=== PATIENT | female | born 1995 | race Caucasian/White ===

== ENCOUNTER 2017-12-18 17:40 | Emergency (ER) | payer OTHER ==
[2017-12-18 17:57] VITALS: BP 120/69
--- NOTE | 2017-12-18 18:09 | UC ---
Abdominal Pain Female HPI - HPI Summary HPI Summary: Patient is complaining of pain across her upper abdomen for the past month she states that it radiates under her ribs and sometimes into her back. She states that there is nothing that makes it feel any better. When asked what makes it worse, the patient reports that the medications given to her by the emergency room. She states that she was last seen in the ER for this last evening and was discharged to home. Pt states she has been seen in the ER for this, she states about 20x's within the past month. She states they've treated her with antibiotics, Tylenol and even Flexeril all with no relief. She denies any change in her discomfort with meals. She admits to occasional vomiting and diarrhea over the past month but none now. She denies any history of inflammatory bowel disease and reflux but offers that she did have her gallbladder out recently. That surgery was done by [facility] in [place]. she has no fever, dysuria, cp or sob. Pt has not made any f/u appt's with her pcp. - History of Current Complaint Chief Complaint: UCAbdominalPain Stated Complaint: ABDOM. PAIN Time Seen by Provider: 12/18/17 17:55 Pain Intensity: 10 Allergies/Adverse Reactions: Allergies Allergy/AdvReac Type Severity Reaction Status Date / Time No Known Allergies Allergy Verified 12/18/17 17:58 PMH/Surg Hx/FS Hx/Imm Hx Respiratory History: Asthma Psychological History: Depression - Surgical History Surgical History: Yes Surgery Procedure, Year, and Place: Gallbladder age 14 - Family History Known Family History: Positive: Other - copd/asthma - Social History Occupation: Employed Full-time Lives: With Family Alcohol Use: None Substance Use Type: None Smoking Status (MU): Never Smoked Tobacco - Immunization History Vaccination Up to Date: Yes Review of Systems Constitutional: Negative Skin: Negative Eyes: Negative ENT: Negative Respiratory: Negative Cardiovascular: Negative Gastrointestinal: Abdominal Pain Genitourinary: Negative Motor: Negative Neurovascular: Negative Musculoskeletal: Negative Neurological: Negative Psychological: Negative Is Patient Immunocompromised?: No All Other Systems Reviewed And Are Negative: Yes Physical Exam Triage Information Reviewed: Yes Appearance: Well-Appearing Vital Signs: Initial Vital Signs Temp 98.4 F 12/18/17 17:52 Pulse 76 12/18/17 17:52 Resp 16 12/18/17 17:52 BP 120/69 12/18/17 17:52 Pulse Ox 100 12/18/17 17:52 Vital Signs Reviewed: Yes Eyes: Positive: Conjunctiva Clear ENT: Positive: Normal ENT inspection Neck: Positive: Supple, Nontender, No Lymphadenopathy Respiratory: Positive: Chest non-tender, Lungs clear, Normal breath sounds Cardiovascular: Positive: RRR, No Murmur Abdomen Description: Positive: Other: - Postop scar from gallbladder surgery appreciated. Positive bowel sounds, soft, tender over the epigastrium but no mass, no hepatosplenomegaly or CVA tenderness. No guarding and no rebound. No CVA tenderness. Musculoskeletal: Positive: ROM Intact Neurological: Positive: Alert Psychological: Positive: Age Appropriate Behavior Skin Exam: Normal Diagnostics - Laboratory Diagnostic Studies Completed/Ordered: u/a= 2+ blood and trace protein. HCG=neg. Abd Pain Female Course/Dx - Course Course Of Treatment: Patient is nontoxic and has no acute abdomen. HCG is negative. UA showed trace protein and 2+ microscopic blood. We will trial of proton pump inhibitor and need for close follow-up with primary care stressed at the time of this visit. Patient also advised that if she has any worsening she is to go to the ER. She is also advised to follow bland diet. - Differential Dx/Diagnosis Provider Diagnoses: Epigastric pain Discharge - Sign-Out/Discharge Documenting (check all that apply): Patient Departure All imaging exams completed and their final reports reviewed: No Studies - Discharge Plan Condition: Stable Disposition: HOME Prescriptions: Omeprazole CAP* [Prilosec CAP* 20 MG] 20 mg PO 1700 #14 Patient Education Materials: Diet for Stomach Ulcers and Gastritis (ED), Acute Abdominal Pain (ED) Referrals: HOPE Arrieta [Medical Doctor] - As Soon As Possible Additional Instructions: GO TO THE ER FOR ANY CHANGES OR WORSENING - Billing Disposition and Condition Condition: STABLE Disposition: Home
== END 2017-12-18 18:57 | disposition home or self-care (01) ==
LOC: UCCORT 17:40
DX: R10.13 Epigastric pain (principal)
CPT/HCPCS: 81003; 84702; 99212; G0463

== ENCOUNTER 2018-02-23 20:23 | Emergency (ER) | payer OTHER ==
[2018-02-23 20:41] VITALS: BP 106/58
[2018-02-23] MEDS ORDERED: Amoxicillin PO (*) 500 MG CAP PO ONE (20:49)
--- NOTE | 2018-02-23 20:52 | UC ---
Ear Complaint HPI - HPI Summary HPI Summary: sharp right ear pain for 2 days, patient is - History of Current Complaint Chief Complaint: UCEar Stated Complaint: RT EAR PAIN Time Seen by Provider: 02/23/18 20:39 Hx Obtained From: Patient Hx Last Menstrual Period: EARLY DEC 2017 ?: Yes Onset/Duration: Sudden Onset Severity Initially: Severe Severity Currently: Severe Pain Intensity: 9 Associated Signs/Symptoms: Positive: URI Symptoms - Allergies/Home Medications Allergies/Adverse Reactions: Allergies Allergy/AdvReac Type Severity Reaction Status Date / Time No Known Allergies Allergy Verified 02/23/18 20:31 Home Medications: Home Medications Pnv No.95/Ferrous Fum/Folic AC [ and Iron] 1 tab PO DAILY 02/23/18 [ History Confirmed 02/23/18] PMH/Surg Hx/FS Hx/Imm Hx Previously Healthy: Yes - Surgical History Surgical History: Yes Surgery Procedure, Year, and Place: Gallbladder age 14. X 1 - Family History Known Family History: Positive: Other - copd/asthma - Social History Alcohol Use: None Substance Use Type: None Smoking Status (MU): Never Smoked Tobacco - Immunization History Vaccination Up to Date: Yes Review of Systems All Other Systems Reviewed And Are Negative: Yes Constitutional: Positive: Negative Skin: Positive: Negative Eyes: Positive: Negative ENT: Positive: Sore Throat, Ear Ache Respiratory: Positive: Negative Cardiovascular: Positive: Negative Gastrointestinal: Positive: Negative Genitourinary: Positive: Negative Motor: Positive: Negative Neurovascular: Positive: Negative Musculoskeletal: Positive: Negative Neurological: Positive: Negative Psychological: Positive: Negative Is Patient Immunocompromised?: No Physical Exam Triage Information Reviewed: Yes Appearance: Ill-Appearing, Pain Distress, Obese Vital Signs: Initial Vital Signs Temp 98.1 F 02/23/18 20:34 Pulse 80 02/23/18 20:34 Resp 18 02/23/18 20:34 BP 106/58 02/23/18 20:34 Pulse Ox 100 02/23/18 20:34 Vital Signs Reviewed: Yes Eye Exam: Normal ENT Exam: Normal ENT: Positive: TM bulging, TM dull, TM red - right ear Dental Exam: Normal Neck exam: Normal Respiratory: Positive: Chest non-tender, Lungs clear, Normal breath sounds Cardiovascular Exam: Normal Cardiovascular: Positive: RRR, No Murmur, Pulses Normal Abdominal Exam: Normal Musculoskeletal Exam: Normal Neurological Exam: Normal Psychological Exam: Normal Skin Exam: Normal Ear Complaint Course/Dx - Course Course Of Treatment: hx obtained, exam peformed ,meds reviewed, treated for otitis media - Differential Dx/Diagnosis Provider Diagnoses: right otitis media Discharge - Sign-Out/Discharge Documenting (check all that apply): Patient Departure All imaging exams completed and their final reports reviewed: No Studies - Discharge Plan Condition: Stable Disposition: HOME Prescriptions: Amoxicillin PO (*) [Amoxicillin 500 MG CAP*] 500 mg PO Q12H #19 cap Patient Education Materials: Ear Infection (ED) Referrals: Asael Hernandez MD [Primary Care Provider] - Additional Instructions: 1. take the medication as prescribed.2 2. Take tylenol for pain 3. FOllow up as needed. - Billing Disposition and Condition Condition: STABLE Disposition: Home
== END 2018-02-23 20:58 | disposition home or self-care (01) ==
LOC: UCCORT 20:23
DX: O99.89 Other specified diseases and conditions complicating pregnancy, childbirth and the puerperium (principal); H66.91 Otitis media, unspecified, right ear
CPT/HCPCS: 99212; A9270-GY; G0463